=== PATIENT | female | born 1970 | race Caucasian/White ===

== ENCOUNTER 2019-02-01 04:15 | Inpatient (IN) | payer OTHER ==
[~2019-02-01] VITALS: Ht 157.5 cm; Wt 61.2 kg
[~2019-02-01 04:15] MED LIST: CARAFATE 1 GM TA1 GM PO; HYDROCODON-ACE1 EAC8 PO; HYDROCODONE-AP1 EAC6 PO; NEXIUM40 MG PO
[2019-02-01 04:31] VITALS: BP 128/74
[2019-02-01 05:43] LABS: ABSOLUTE BASOPHILS 0.1 thou/uL (0.0-0.2); ABSOLUTE EOSINOPHILS 0.1 thou/uL (0.0-0.7); ABSOLUTE LYMPHOCYTES 1.3 thou/uL (0.8-5.3); ABSOLUTE MONOCYTES 0.6 thou/uL (0.0-1.2); ABSOLUTE NEUTROPHILS 7.5 thou/uL (1.6-8.1); BASOPHILS 0.7 %; EOSINOPHILS 0.7 %; HEMATOCRIT 41.2 % (37.0-47.0); HEMOGLOBIN 13.6 gm/dL (12.0-15.0); LYMPHOCYTES 13.4 %; MCV 84.8 fL (80.0-100.0); MONOCYTES 6.2 %; MPV 8.1 fl. (7.2-11.1); NUCLEATED RBCS 0 /100WBC; PLATELET COUNT* 301 thou/uL (150-400); RBC 4.86 mil/uL (4.20-5.00); RDW-CV 13.6 % (10.5-14.5); WBC 9.5 thou/uL (4.0-11.0)
[2019-02-01 05:48] LABS: CREATININE 0.9 mg/dL (0.6-1.3); POTASSIUM 3.9 mmol/L (3.5-5.1)
[2019-02-01 05:52] LABS: ALBUMIN 4.2 g/dL (3.4-5.0); TOTAL BILIRUBIN 0.6 mg/dL (<0.1-1.0); TOTAL PROTEIN 7.9 g/dL (6.4-8.2)
[2019-02-01 14:15] VITALS: BP 102/68
[2019-02-01 15:03] VITALS: BP 130/65
--- NOTE | 2019-02-01 18:14 | NUR ---
PATIENT ARRIVED TO UNIT AT 1420. ALERT AND ORIENTED X4. ADMISSION HISTORY AND ASSESSMENT COMPLETED AND CHARTED. VSS ON ROOM AIR. NO COMPLAINTS OF PAIN. NAUSEA MANAGED WITH ZOFRAN. FLUIDS INFUSED ORDERED. NO OTHER COMPLAINTS THIS SHIFT. ULTRASOUND WILL HAVE TO BE DONE TOMORROW MORNING WHEN THE PATIENTS BLADDER IS FULL. PATIENT UP AD ZORAN. CALL LIGHT PLACED IN REACH. HOURLY ROUNDS COMPLETED. WILL CONTINUE TO MONITOR.
[2019-02-02] VITALS: BP 97/54
[2019-02-02 03:44] LABS: CALCIUM 8.6 mg/dL (8.5-10.1); CREATININE 0.9 mg/dL (0.6-1.3); POTASSIUM 3.7 mmol/L (3.5-5.1); TOTAL BILIRUBIN 0.6 mg/dL (<0.1-1.0); TOTAL PROTEIN 5.6 g/dL (6.4-8.2)
[2019-02-02 03:49] LABS: ABSOLUTE EOSINOPHILS 0.1 thou/uL (0.0-0.7); ABSOLUTE LYMPHOCYTES 1.3 thou/uL (0.8-5.3); ABSOLUTE MONOCYTES 0.6 thou/uL (0.0-1.2); ABSOLUTE NEUTROPHILS 3.3 thou/uL (1.6-8.1); BASOPHILS 0.6 %; EOSINOPHILS 1.7 %; HEMATOCRIT 33.4 % (37.0-47.0); LYMPHOCYTES 25.4 %; MCH 28.2 pg (26.0-34.0); MCHC 32.6 g/dL (28.0-37.0); MCV 86.6 fL (80.0-100.0); MPV 8.7 fl. (7.2-11.1); NUCLEATED RBCS 0 /100WBC; POLYS 61.3 %; RBC 3.85 mil/uL (4.20-5.00); RDW-CV 13.6 % (10.5-14.5); WBC 5.3 thou/uL (4.0-11.0)
[2019-02-02 03:50] LABS: HEMOGLOBIN 10.9 gm/dL (12.0-15.0); PLATELET COUNT* 204 thou/uL (150-400)
--- NOTE | 2019-02-02 05:26 | NUR ---
PT SLEPT FAIRLY WELL OVERNIGHT. RECEIVED IV PAIN AND NAUSEA MED TWICE FOR CO EPIGASTRIC PAIN 4-5/10 BURNING WITH SLIGHT NAUSEA, NO EMESIS. HAS BEEN NPO. TO HAVE ABD XRAY TODAY. SURGERY CONSULTING. UP AD ZORAN. RWRIST IVF INFUSING PER PUMP. AT BEDSIDE OVERNIGHT ATTENTIVE TO CARES. ABLE TO USE CALL LITE AND MAKE NEEDS KNOWN.
[2019-02-02 07:50] VITALS: BP 112/60
[2019-02-02 16:30] VITALS: BP 105/56
--- NOTE | 2019-02-02 17:19 | NUR ---
ASSUMED CARE OF PATIENT AT APPROX 0730. ALERT AND ORIENTED X4. ASSESSMENT COMPLETED AND CHARTED. COMPLAINTS OF PAIN AND NAUSEA MANAGED WITH IV MEDS. PROCAL INFUSING ORDERED. PATIENT ADVANCED FROM CLEAR LIQUIDS TO FULL LIQUIDS AND TOLERATING IT WELL. COMPLAINT OF HEARTBURN MANAGED WITH PEPCID WHICH GIVES HER RELIEF. NO OTHER COMPLAINTS THIS SHIFT. UP AD ZORAN. CALL LIGHT WITHIN REACH AND USES APPROPRIATELY. HOURLY ROUNDS COMPLETED. WILL CONTINUE TO MONITOR.
[2019-02-02 20:00] VITALS: BP 110/51
[2019-02-03 05:32] LABS: HEMATOCRIT 34.5 % (37.0-47.0); HEMOGLOBIN 11.4 gm/dL (12.0-15.0); MCH 28.7 pg (26.0-34.0); MCHC 33.1 g/dL (28.0-37.0); MCV 86.6 fL (80.0-100.0); MPV 8.7 fl. (7.2-11.1); RBC 3.99 mil/uL (4.20-5.00); RDW-CV 13.4 % (10.5-14.5)
[2019-02-03 05:50] LABS: CALCIUM 8.6 mg/dL (8.5-10.1); CREATININE 0.7 mg/dL (0.6-1.3); MAGNESIUM 2.1 mg/dL (1.8-2.4); POTASSIUM 4.7 mmol/L (3.5-5.1)
--- NOTE | 2019-02-03 06:13 | NUR ---
Alert and oriented x 4. She is up independently in the room. She has bowel sounds x 4 and abdomen is soft. She states the abdominal pain is more epigastric pain and the pepcid has helped. She did have nausea med x 1 and pain med x 1 this shift. She has slept well.
[2019-02-03 07:40] VITALS: BP 99/51
[2019-02-03] MEDS ORDERED: LIDOPATCH1 EACH TOP (08:20)
[2019-02-03] MEDS ORDERED: TRAMADOL 50 MG50 MG PO (08:20)
[2019-02-03 09:29] VITALS: BP 99/51
--- NOTE | 2019-02-03 12:24 | EKG ---
[place] [address] ELECTROCARDIOGRAM REPORT Name: MAVERICK MCINTYRE Room: [address] ADM IN [facility].#: [id number] Admission: 02/01/19 Attend Phys: Sandrine Sanchez MD Discharge: Date of : 72 Report #: [id number] THIS REPORT FOR: //name// [facility] ED Test Date: 2019-02-01 Test Time: 04:36:04 Pat Name: MAVERICK MCINTYRE Department: Room: [facility] Gender: F Chief Green Officer: [place] : 1970 Requested By: Crystal De Dios Order Number: [id number] MD: Adithya Prieto Measurements Intervals [place] Rate: 75 P: 52 GA: 155 QRS: 83 QRSD: 97 T: 58 QT: 375 QTc: 419 Interpretive Statements Sinus rhythm Probable left atrial enlargement Baseline wander in lead(s) V1,V2 Compared to ECG 10/01/2015 04:21:38 Sinus arrhythmia no longer present Electronically Signed On 02-03-2019 12:24:30 CDT by Adithya Prieto [email or web address] <ELECTRONICALLY SIGNED> By: Adithya Prieto MD, [facility] 02/03/19 1224 0436 [id number] Adithya Prieto MD, [facility] /EPI
[2019-02-03] MEDS ORDERED: OMEPRAZOLE 20 M20 M1 PO (12:29)
[2019-02-03 12:44] VITALS: BP 99/51
--- NOTE | 2019-02-03 12:44 | NUR ---
PT GIVEN DISCHARGE INFORMATION, CARE NOTES, AND PRESCRIPTIONS. IV REMOVED. PT LEFT VIA AMBULATORY WITH NURSING STAFF TO HOME. FALL RISK PRECAUTIONS IN PLACE. HOURLY ROUNDING COMPLETED. WILL CONTINUE TO MONITOR.
== END 2019-02-03 12:45 | disposition home or self-care (01) | DRG 390 ==
LOC: M.ERS 04:15 → M.ORTHSURG 08:10 → M.TBA-ER 08:10 → M.ORTHSURG 14:22
PROVIDERS: Personal Emergency Response Attendant; Surgery; ADMIT Internal Medicine
DX: K56.600 Partial intestinal obstruction, unspecified as to cause (principal); K21.9 Gastro-esophageal reflux disease without esophagitis; K27.9 Peptic ulcer, site unspecified, unspecified as acute or chronic, without hemorrhage or perforation; N85.2 Hypertrophy of uterus; Z90.49 Acquired absence of other specified parts of digestive tract; Z79.899 Other long term (current) drug therapy; Z91.048 Other nonmedicinal substance allergy status; Z98.891 History of uterine scar from previous surgery

== ENCOUNTER 2021-07-20 05:48 | Inpatient (IN) | payer OTHER ==
[~2021-07-20] VITALS: Ht 157.5 cm; Wt 68.0 kg
[~2021-07-20 05:48] MED LIST changes: +LIDOPATCH1 EACH TOP; +OMEPRAZOLE 20 M20 M1 PO; +TRAMADOL 50 MG50 MG PO
[2021-07-20 06:07] VITALS: BP 118/71
[2021-07-20 06:44] LABS: ABSOLUTE LYMPHOCYTES 0.4 thou/uL (0.8-5.3); ABSOLUTE MONOCYTES 0.6 thou/uL (0.0-1.2); ABSOLUTE NEUTROPHILS 5.8 thou/uL (1.6-8.1); BASOPHILS 0.3 %; EOSINOPHILS 0.5 %; HEMATOCRIT 41.6 % (37.0-47.0); HEMOGLOBIN 13.9 gm/dL (12.0-15.0); LYMPHOCYTES 5.6 %; MCH 28.4 pg (26.0-34.0); MCHC 33.5 g/dL (28.0-37.0); MCV 84.7 fL (80.0-100.0); MONOCYTES 9.3 %; MPV 7.7 fl. (7.2-11.1); NUCLEATED RBCS 0 /100WBC; PLATELET COUNT* 252 thou/uL (150-400); POLYS 84.3 %; RBC 4.91 mil/uL (4.20-5.00); RDW-CV 13.7 % (10.5-14.5); WBC 6.9 thou/uL (4.0-11.0)
[2021-07-20 07:00] LABS: CALCIUM 9.5 mg/dL (8.5-10.1); CREATININE 1.1 mg/dL (0.6-1.3); POTASSIUM 3.9 mmol/L (3.5-5.1)
[2021-07-20 07:11] LABS: ALBUMIN 4.3 g/dL (3.4-5.0); MAGNESIUM 2.1 mg/dL (1.8-2.4); TOTAL BILIRUBIN 0.8 mg/dL (<0.1-1.0); TOTAL PROTEIN 8.1 g/dL (6.4-8.2)
--- NOTE | 2021-07-20 11:05 | EKG ---
[place] [address] ELECTROCARDIOGRAM REPORT Name: MAVERICK MCINTYRE Room: [place] [address] ADM IN [facility]#: [id number] Admission: 07/20/21 Attend Phys: Rusty Malik Discharge: Date of : 72 Date of Service: 07/20/21601 Report #: [id number] THIS REPORT FOR: //name// [facility] ED Test Date: 2021-07-20 Test Time: 06:02:56 Pat Name: MAVERICK MCINTYRE Department: Room: [facility] Gender: F Homeopathic Doctor: : 1970 Requested By: Juan Magdaleno Order Number: [id number] MD: Adithya Prieto Measurements Intervals [place] Rate: 84 P: 52 IN: 143 QRS: 75 QRSD: 89 T: 43 QT: 377 QTc: 446 Interpretive Statements Sinus rhythm Compared to ECG 02/01/2019 04:36:04 No significant changes Electronically Signed On 07-20-2021 11:05:33 JUICE TESTER by Adithya Prieto [email or web address] <ELECTRONICALLY SIGNED> By: Adithya Prieto MD, [facility] 07/20/21 1105 0602 [id number] Adithya Prieto MD, [facility] /EPI
[2021-07-20 12:00] VITALS: BP 128/83
[2021-07-20 16:00] VITALS: BP 126/73
[2021-07-20 20:00] VITALS: BP 135/69
[2021-07-21] VITALS: BP 129/74
[2021-07-21 04:34] LABS: ABSOLUTE LYMPHOCYTES 0.7 thou/uL (0.8-5.3); ABSOLUTE MONOCYTES 0.5 thou/uL (0.0-1.2); ABSOLUTE NEUTROPHILS 2.6 thou/uL (1.6-8.1); BASOPHILS 0.3 %; EOSINOPHILS 0.4 %; HEMATOCRIT 37.5 % (37.0-47.0); HEMOGLOBIN 12.7 gm/dL (12.0-15.0); LYMPHOCYTES 18.7 %; MCHC 33.9 g/dL (28.0-37.0); MCV 85.6 fL (80.0-100.0); MONOCYTES 12.8 %; MPV 8.1 fl. (7.2-11.1); NUCLEATED RBCS 0 /100WBC; PLATELET COUNT* 204 thou/uL (150-400); POLYS 67.8 %; RBC 4.38 mil/uL (4.20-5.00); RDW-CV 13.6 % (10.5-14.5); WBC 3.8 thou/uL (4.0-11.0)
[2021-07-21 04:35] LABS: APTT 24.3 Seconds (25.0-31.3); PROTIME 10.5 Seconds (9.20-11.50)
[2021-07-21 04:45] LABS: ALBUMIN 3.3 g/dL (3.4-5.0); CALCIUM 8.5 mg/dL (8.5-10.1); PHOSPHORUS* 3.4 mg/dL (2.5-4.9); TOTAL BILIRUBIN 0.7 mg/dL (<0.1-1.0); TOTAL PROTEIN 6.6 g/dL (6.4-8.2)
[2021-07-21 04:55] VITALS: BP 153/79
[2021-07-21 09:03] VITALS: BP 117/66
[2021-07-21 12:55] VITALS: BP 125/71
[2021-07-21 17:06] VITALS: BP 118/67
[2021-07-21] MEDS ORDERED: VITAMIN C1000 MG PO (18:21)
[2021-07-21 19:00] LABS: CREATININE 0.9 mg/dL (0.6-1.3); POTASSIUM 4.3 mmol/L (3.5-5.1)
[2021-07-21 19:05] LABS: ALBUMIN 3.2 g/dL (3.4-5.0); TOTAL BILIRUBIN 0.6 mg/dL (<0.1-1.0); TOTAL PROTEIN 6.3 g/dL (6.4-8.2)
[2021-07-21 20:23] VITALS: BP 118/67
== END 2021-07-21 20:36 | disposition home or self-care (01) | DRG 388 ==
LOC: M.ERS 05:48 → M.TBA-ER 09:57
PROVIDERS: Emergency Medicine Emergency Medical Services; Internal Medicine; ADMIT Internal Medicine; ATTEND Internal Medicine
DX: K56.50 Intestinal adhesions [bands], unspecified as to partial versus complete obstruction (principal); U07.1 COVID-19; K21.9 Gastro-esophageal reflux disease without esophagitis; Z90.49 Acquired absence of other specified parts of digestive tract; Z91.012 Allergy to eggs